=== PATIENT | female | born 1975 | race Caucasian/White ===

== ENCOUNTER → 2019-01-03 | Day surgery (SDC) | payer OTHER ==
[~2019-01-03] MED LIST: ANAPROX DS550 MG PO; ATOMOXETINE HCL18 MG PO; CIPROFLOXACIN500 MG PO; CLEARATADINE10 MG PO; LEVOTHYROXINE100 MC1 PO; LISINOPRIL20 MG PO; ZOFRAN ODT4 MG SL
--- NOTE | ~2019-01-03 | O ---
[place], [place] OPERATIVE NOTE NAME: DYLAN DUVAL UNIT #: [id number] ROOM: DOCTOR: TALIA TYLER MD BIRTHDATE: [birth year] DOS: 01/03/2019 INDICATIONS: This is a 43-year-old patient who presented with a chief complaint of colonic concern for screening. The patient is undergoing plans for a SLEEVE surgery for bariatric purpose with Dr. Garzon. ALLERGIES: PENICILLIN AND LATEX. FAMILY HISTORY: Noncontributory. PAST SURGICAL HISTORY: Cholecystectomy and D and C. PAST MEDICAL HISTORY: Obesity, hypertension. SOCIAL HISTORY: Nonsmoker, nonalcohol consumer. PROCEDURE: Today's procedure part of investigation is colonoscopy. PREMEDICATION: Propofol. SCOPE: Olympus folding colonoscope 10L video. REPORT: After putting the patient in left lateral position and application of lubricant to the scope, the scope was introduced; thereafter, under direct visualization, I advanced through the length of colkon without difficulty. Base of the cecum explored; however, retained stool in the liquid form was noticed. Despite that ileocecal valve was defined appendiceal orifice was photographed and gradually scope was withdrawn from ascending, transverse, descending colon under circumferential fashion. Mucosal vascularity carefully examined. No pathology identified. Air was suctioned out. The patient was extubated, tolerated the procedure well. IMPRESSION: Normal colonoscopic examination as far as colon is concerned the patient is cleared for bariatric surgery; however, I have offered the patient that she may need endoscopy of upper tract as a part of the preop investigation. In view of the fact the patient has history of constipation. She was content with colonoscopy alone. Follow up as outpatient; otherwise, thank you very much indeed for your kind referral. Follow-up colonoscopy in 10 years unless there are symptoms in which case follow-up should be as needed. [place], [place] OPERATIVE NOTE NAME: DYLAN DUVAL UNIT #: [id number] ROOM: DOCTOR: TALIA TYLER MD BIRTHDATE: [birth year] TALIA TYLER MD CM:OPRECORD:OPERATIVE NOTE [id number] TALIA TYLER MD 03/06/19 [id number] interface
[2019-01-03 09:12] VITALS: BP 137/82
[2019-01-03 11:15] VITALS: BP 137/89
[2019-01-03 11:30] VITALS: BP 130/89
[2019-01-03 11:44] VITALS: BP 139/91
== END | disposition home or self-care (01) ==
LOC: SDC 01-02 10:15
DX: Z12.11 Encounter for screening for malignant neoplasm of colon (principal); K59.00 Constipation, unspecified; I10 Essential (primary) hypertension; F98.8 Other specified behavioral and emotional disorders with onset usually occurring in childhood and adolescence; M19.90 Unspecified osteoarthritis, unspecified site; K21.9 Gastro-esophageal reflux disease without esophagitis; E66.9 Obesity, unspecified; Z68.42 Body mass index [BMI] 45.0-49.9, adult; Z88.0 Allergy status to penicillin; Z91.040 Latex allergy status; Z98.890 Other specified postprocedural states; Z87.01 Personal history of pneumonia (recurrent); Z87.891 Personal history of nicotine dependence; Z90.49 Acquired absence of other specified parts of digestive tract; Z79.899 Other long term (current) drug therapy; Z82.49 Family history of ischemic heart disease and other diseases of the circulatory system

== ENCOUNTER → 2021-02-20 | Outpatient (CLI) | payer OTHER | END | disposition home or self-care (01) | LOC: RAD 09:43 | PROVIDERS: ATTEND Chiropractor | DX: M54.2 Cervicalgia (principal) ==

== ENCOUNTER → 2024-03-19 | Outpatient (CLI) | payer OTHER ==
[2024-03-19 16:01] LABS: BASO % 0.5 % (0.0-1.0); EOS # 0.2 10*3/uL (0.0-0.4); EOS % 2.1 % (1.0-4.0); HEMATOCRIT 43.6 % (37.0-47.0); LYMPH # 2.3 10*3/uL (1.3-4.4); LYMPH % 27.1 % (27.0-41.0); MEAN CELL VOLUME 93.8 fl (81.0-99.0); MEAN CORPUSCULAR HGB 29.7 pg (27.0-31.0); MEAN CORPUSCULAR HGB CONC 31.7 g/dl (33.0-37.0); MEAN PLATELET VOLUME 12.4 fl (9.6-12.3); MONO # 0.6 10*3/uL (0.1-1.0); MONO % 7.1 % (3.0-9.0); NEUT # 5.3 10*3/uL (2.3-7.9); NEUT % 62.1 % (47.0-73.0); PLATELET COUNT AUTOMATED 268 10*3/uL (130-400); RED BLOOD COUNT 4.65 10*6/uL (4.10-5.10); RED CELL DISTRI WIDTH 13.1 % (0-14.5); WHITE BLOOD COUNT 8.6 10*3/uL (4.8-10.8)
[2024-03-19 16:22] LABS: ALKALINE PHOSPHATASE 66 U/L (46-116); BUN 17 mg/dl (9-23); CHLORIDE 104 mmol/L (98-107); POTASSIUM 3.5 mmol/L (3.4-5.1); SGPT/ALT 18 U/L (5-49); TOTAL PROTEIN 7.2 gm/dL (6.0-8.0)
== END | disposition home or self-care (01) ==
LOC: LAB 15:52
PROVIDERS: ATTEND Nurse Practitioner Family
DX: J18.9 Pneumonia, unspecified organism (principal)

== ENCOUNTER → 2025-01-31 | Outpatient (CLI) | payer OTHER ==
[2025-01-31 12:09] LABS: CHOLESTEROL 159 mg/dL (<200); LDL CHOLESTEROL 85 mg/dL (9-159); TRIGLYCERIDES 81 mg/dl (<150)
== END | disposition home or self-care (01) ==
LOC: LAB 10:40
PROVIDERS: ATTEND Nurse Practitioner Family
DX: I47.10 Supraventricular tachycardia, unspecified (principal); I10 Essential (primary) hypertension; R07.9 Chest pain, unspecified; R06.02 Shortness of breath; Z82.49 Family history of ischemic heart disease and other diseases of the circulatory system